=== PATIENT | male | born 1985 | race Caucasian/White ===

== ENCOUNTER 2019-01-10 08:49 | Emergency (ER) | payer MEDICAID ==
[~2019-01-10] VITALS: Ht 170.2 cm; Wt 68.0 kg
[2019-01-10 08:51] VITALS: BP 128/64; PULSE 61; RESP 16; Ht 170.2 cm; Wt 68.0 kg
[2019-01-10] MEDS ORDERED: NAPR-985 PO (10:23)
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
== END 2019-01-10 11:05 | disposition home or self-care (01) ==
LOC: FTE 08:49
DX: M17.11 Unilateral primary osteoarthritis, right knee (principal)
CPT/HCPCS: 73562; Z7502